=== PATIENT | male | born 1935 | race Hispanic/Latino ===

== ENCOUNTER 2018-02-19 10:33 | Inpatient (IN) | payer MEDICARE ==
[2018-02-19] MEDS ORDERED: NACL 0.9% 1000 ML 1,000 ML IV ONE ×2 (11:09→16:42)
--- NOTE | 2018-02-19 11:24 | Emergency Department Report ---
ED General Adult HPI - General Chief complaint: Altered Mental Status Stated complaint: ALTERED MENTAL STATUS Time Seen by Provider: 02/19/18 11:05 Source: patient, EMS, RN notes reviewed Mode of arrival: Stretcher Limitations: Altered Mental Status - History of Present Illness Initial comments: Patient is unable to give history. I have obtained history from nursing report and half-way records. Mr. Wilkerson is a 82-year-old male with history of degenerative joint disease, acute renal failure, malnutrition, anemia and thrombocytopenia. In December he was admitted at [facility]. He's had physical deterioration with inability to walk over a year's time. He was treated for acute kidney injury, generalized weakness and malnutrition at that time. He was then transferred to [facility] (formerly [facility]) on January 25. Over the last week he has had decreased intake. He is not eating or drinking. + Decreased responsiveness. He also had low blood pressure. Dry mucous membranes. Appears to have abdominal tenderness. Mr. Wilkerson is attempting to speak, but unable to understand with tacky dry oral mucosa. Mr. Wilkerson is full CODE STATUS. I spoke with Dr. Mercado medical receptionist assistant at [facility]. Mr. Wilkerson had multiple falls as a complication of gait instablity prior to admission to facility. Patient did have a fall out of the wheelchair on February 04. Lumbar spine radiographs obtained on February 03 revealed mild compression of 4th lumbar vertabra. - Related Data Home Medications Medication Instructions Recorded Confirmed Last Taken Aspirin [Aspirin BABY CHEW TAB] 81 mg PO QDAY 02/19/18 02/19/18 Unknown Calcium Carbonate/Vitamin D3 1 each PO DAILY 02/19/18 02/19/18 Unknown [Caltrate 600 + D Soft Chew Tab] Ferrous Sulfate [Feosol] 325 mg PO QDAY 02/19/18 02/19/18 Unknown Multivitamin [Multiple Vitamins] 1 each PO DAILY 02/19/18 02/19/18 Unknown [place]-3/Dha/Epa/Fish Oil [Fish Oil 1 each PO DAILY 02/19/18 02/19/18 Unknown 1,000 mg Softgel] Allergies Allergy/AdvReac Type Severity Reaction Status Date / Time meperidine [From Demerol] Allergy Unknown Verified 02/19/18 10:54 pentazocine Allergy Unknown Verified 02/19/18 10:54 promethazine Allergy Unknown Verified 02/19/18 10:54 ED Review of Systems ROS: Stated complaint: ALTERED MENTAL STATUS Other details as noted in HPI Comment: Unobtainable due to pts medical conditions ED Past Medical Hx - Past Medical History Previous Medical History?: Yes Hx Kidney Stones: Yes Additional medical history: anemia, cerebellar ataxia, thrombocytopenia, muscle weakness, protein malnutrition - Social History Smoking Status: Former Smoker Substance Use Type: None - Medications Home Medications: Home Medications Medication Instructions Recorded Confirmed Last Taken Type Aspirin [Aspirin BABY CHEW TAB] 81 mg PO QDAY 02/19/18 02/19/18 Unknown History Calcium Carbonate/Vitamin D3 1 each PO DAILY 02/19/18 02/19/18 Unknown History [Caltrate 600 + D Soft Chew Tab] Ferrous Sulfate [Feosol] 325 mg PO QDAY 02/19/18 02/19/18 Unknown History Multivitamin [Multiple Vitamins] 1 each PO DAILY 02/19/18 02/19/18 Unknown History [place]-3/Dha/Epa/Fish Oil [Fish Oil 1 each PO DAILY 02/19/18 02/19/18 Unknown History 1,000 mg Softgel] ED Physical Exam - General Limitations: Altered Mental Status General appearance: lethargic - Head Head exam: Present: atraumatic, normocephalic - Eye Eye exam: Present: PERRL Pupils: Present: miosis - ENT ENT exam: Present: mucous membranes dry, other (tacky dry mucous membranes with sediment and residue in mouth) - Neck Neck exam: Present: normal inspection, full ROM. Absent: tenderness, meningismus - Respiratory Respiratory exam: Present: rhonchi. Absent: respiratory distress, wheezes, rales, accessory muscle use - Cardiovascular Cardiovascular Exam: Present: regular rate, normal rhythm, normal heart sounds. Absent: systolic murmur, diastolic murmur - GI/Abdominal GI/Abdominal exam: Present: soft, tenderness. Absent: rebound, rigid - Extremities Exam Extremities exam: Absent: pedal edema - Neurological Exam Neurological exam: Present: other (focal deficit,) - Psychiatric Psychiatric exam: Present: flat affect - Skin Skin exam: Present: pallor, ecchymosis (diffuse bruises, large bruise in the left flank), other (cool to touch, redness in the sacral area without skin breakdown) ED Course Vital Signs 02/19/18 02/19/18 02/19/18 10:54 11:11 11:15 Temperature 98.3 F Pulse Rate 80 77 Respiratory 16 19 Rate Blood Pressure 85/56 Blood Pressure 92/54 [Left] O2 Sat by Pulse 100 100 Oximetry ED Medical Decision Making - Lab Data Result diagrams: 02/19/18 11:31 02/19/18 11:31 - EKG Data EKG shows normal: sinus rhythm, intervals Rate: normal - EKG Data 02/19/18 14:12 anterior Q waves no ST elevation - Radiology Data Radiology results: report reviewed multiple pelvic fx, ascites small effusion - Medical Decision Making Mr. Wilkerson presents with altered mental status, hypotension. DIANE noted with volume contraction (hypernatremia, hyperchloremia). Incidental multiple pelvic fractures noted. Due to severe decline, patient does not appear to be a surgical candidate due to poor nutritional status and low expected cognitive/ motor function. He will need hypdration and comfort care. No obvious source of infection. No tachycardia to indication active hemorrhage. Suspect severe dehydration as cause of hypotension. Acceptable hemoglobin/hematocrit level. Critical Care Time: Yes Critical care time in (mins) excluding proc time.: 65 Critical care attestation.: If time is entered above; I have spent that time in minutes in the direct care of this critically ill patient, excluding procedure time. ED Disposition Clinical Impression: DIANE (acute kidney injury), Acute encephalopathy, Pelvic fracture, Femur fracture, left Disposition: -09 OP ADMIT IP TO THIS HOSP Is pt being admited?: Yes Does the pt Need Aspirin: No Condition: Stable Time of Disposition: 14:16
--- NOTE | 2018-02-19 11:43 | XRay Report ---
AP CHEST: HISTORY: Altered mental status AP view of the chest demonstrates a normal mediastinal and cardiac contour with clear lungs and normal bony and soft tissue structures. IMPRESSION: Unremarkable AP chest.
[2018-02-19 12:13] LABS: Basophils % (Auto) 0.2 % (0.0-1.8); Eosinophils # (Auto) 0.1 K/mm3 (0.0-0.4); Eosinophils % (Auto) 0.7 % (0.0-4.3); Hematocrit 33.7 % (35.5-45.6); Hemoglobin 10.7 gm/dl (11.8-15.2); Mean Corpuscular HGB Conc 32 % (32-34); Mean Corpuscular Hemoglobin 32 pg (28-32); Mean Corpuscular Volume 99 fl (84-94); Monocytes # (Auto) 0.8 K/mm3 (0.0-0.8); Monocytes % (Auto) 8.5 % (0.0-7.3); Platelet Count 126 K/mm3 (140-440); Red Cell Distribution Width 19.6 % (13.2-15.2)
[2018-02-19 12:19] LABS: Albumin 1.8 g/dL (3.9-5); Calcium 7.7 mg/dL (8.4-10.2)
[2018-02-19 12:21] LABS: INR 1.22 (0.87-1.13)
[2018-02-19 12:23] LABS: Bacteria,Urine 1+ /HPF (Negative); Bilirubin,Urine NEG (Negative); Blood,Urine NEG (Negative); Color,Urine Amber (Yellow); Mucus,Urine FEW /HPF; Protein,Urine <15 mg/dL mg/dL (Negative)
--- NOTE | 2018-02-19 12:58 | Cat Scan Report ---
CT HEAD WITHOUT CONTRAST: HISTORY: Altered mental status. TECHNIQUE: Sequential CT images without contrast. FINDINGS: Non-contrast CT of the head is submitted demonstrating central and cortical atrophy. There are low density changes in the periventricular white matter. There is no intracranial hemorrhage or mass effect. There is no shift of the midline. Basilar cisterns are patent. The included portions of the paranasal sinuses and mastoid air cells are clear. IMPRESSION: Senescent changes as noted. No acute intracranial process.
--- NOTE | 2018-02-19 13:04 | Cat Scan Report ---
CT ABDOMEN PELVIS WITHOUT CONTRAST: HISTORY: abdominal pain. COMPARISON: none. TECHNIQUE: Helical CT in 1.25mm intervals without IV contrast. Sagittal and coronal reconstructions. FINDINGS: Lung bases: Heart size is normal. A small layering left pleural effusion is identified. Liver: Normal. Biliary system: There appears to be layering sludge or tiny non-calcified stones in the gallbladder. No biliary dilatation or inflammation is identified. Pancreas: Normal. Spleen: Normal. Kidneys/ureters/bladder: Bilateral renal cysts are identified. The largest cyst measures 7.9 cm in the mid right kidney. There are 2 nonobstructing calyceal stones in the inferior left kidney measuring up to 3 mm. The ureters are normal course and caliber. The bladder is empty and contains a Ring catheter. Adrenal glands: Normal. Aorta: Normal. Intestines: Unremarkable given no oral contrast was administered. Appendix: Not confidently identified, correlate with surgical history. Pelvic viscera: Hysterectomy changes. Ascites: Small perihepatic and pelvic ascites is identified. Adenopathy: None. Musculoskeletal: The bony structures are mildly demineralized. A severely comminuted left acetabular fracture is identified. Fracture lines extend to the left superior pubic ramus. A comminuted fracture of the left inferior pubic ramus is also identified. There is also suggestion of a nondisplaced left femoral neck fracture. Advanced degenerative disc disease at L4-5. IMPRESSION: Multiple left pelvic fractures as described. Questionable nondisplaced left femoral neck fracture. Cholelithiasis. Bilateral renal cysts. Left renal stones. Small ascites. Small left pleural effusion.
[2018-02-19] MEDS ORDERED: NACL 0.9% 1000 ML 1,000 ML ONE (16:29)
[2018-02-19] MEDS ORDERED: NACL 0.9% 1000 ML 1,000 ML IV SCH (17:00)
[2018-02-19] MEDS ORDERED: ZOFRAN IV PRN (22:07)
[2018-02-19] MEDS ORDERED: PERCOCET 5/325 PO PRN (22:07)
[2018-02-19] MEDS ORDERED: SODIUM CHLORIDE FLUSH SYRINGE 10 ML IV PRN (22:07)
[2018-02-19] MEDS ORDERED: TYLENOL PO PRN (22:07)
--- NOTE | 2018-02-19 22:07 | History and Physical Report ---
History of Present Illness Date of examination: 02/19/18 Date of admission: 02/19/18 15:11 Chief complaint: CC AMS and Decreased PO intake History of present illness: History of Present Illness Patient is unable to give history. Obtained history from nursing report and long-term records. Mr. Wilkerson is a 82-year-old male with history of degenerative joint disease, acute renal failure, malnutrition, anemia and thrombocytopenia. In December he was admitted at [facility]. He's had physical deterioration with inability to walk over a year's time. He was treated for acute kidney injury, generalized weakness and malnutrition at that time. He was then transferred to [facility] on January 25. Over the last week he has had decreased intake. He is not eating or drinking. + Decreased responsiveness. He also had low blood pressure. Dry mucous membranes. Appears to have abdominal tenderness. Mr. Wilkerson is attempting to speak, but unable to understand with tacky dry oral mucosa. Mr. Wilkerson is full CODE STATUS. Past Medical History Previous Medical History?: Yes Hx Kidney Stones: Yes Additional medical history: anemia, cerebellar ataxia, thrombocytopenia, muscle weakness, protein malnutrition Social History Smoking Status: Former Smoker Substance Use Type: None IN resident Surg Hx Unavailable Fam HX Unavailable - Medications Home Medications: Home Medications Medication Instructions Recorded Confirmed Last Taken Type Aspirin [Aspirin BABY CHEW TAB] 81 mg PO QDAY 02/19/18 02/19/18 Unknown History Calcium Carbonate/Vitamin D3 1 each PO DAILY 02/19/18 02/19/18 Unknown History [Caltrate 600 + D Soft Chew Tab] Ferrous Sulfate [Feosol] 325 mg PO QDAY 02/19/18 02/19/18 Unknown History Multivitamin [Multiple Vitamins] 1 each PO DAILY 02/19/18 02/19/18 Unknown History [place]-3/Dha/Epa/Fish Oil [Fish Oil 1 each PO DAILY 02/19/18 02/19/18 Unknown History 1,000 mg Softgel] Review of Systems ROS: Stated complaint: ALTERED MENTAL STATUS Other details as noted in HPI Comment: Unobtainable due to pts medical conditions Medications and Allergies Allergies Allergy/AdvReac Type Severity Reaction Status Date / Time meperidine [From Demerol] Allergy Unknown Verified 02/19/18 10:54 pentazocine Allergy Unknown Verified 02/19/18 10:54 promethazine Allergy Unknown Verified 02/19/18 10:54 Home Medications Medication Instructions Recorded Confirmed Last Taken Type Aspirin [Aspirin BABY CHEW TAB] 81 mg PO QDAY 02/19/18 02/19/18 Unknown History Calcium Carbonate/Vitamin D3 1 each PO DAILY 02/19/18 02/19/18 Unknown History [Caltrate 600 + D Soft Chew Tab] Ferrous Sulfate [Feosol] 325 mg PO QDAY 02/19/18 02/19/18 Unknown History Multivitamin [Multiple Vitamins] 1 each PO DAILY 02/19/18 02/19/18 Unknown History [place]-3/Dha/Epa/Fish Oil [Fish Oil 1 each PO DAILY 02/19/18 02/19/18 Unknown History 1,000 mg Softgel] Active Meds: Active Medications Sodium Chloride (Nacl 0.9% 1000 Ml) 1,000 mls @ 125 mls/hr IV ONCE ONE Stop: 02/20/18 00:41 Last Admin: 02/19/18 16:44 Dose: 125 mls/hr Sodium Chloride (Nacl 0.9% 1000 Ml) 1,000 mls @ 125 mls/hr IV DIRECT RIZWANA Exam - Constitutional Vitals: Temp Pulse Resp BP Pulse Ox 97.3 F L 70 19 109/44 100 02/19/18 17:00 02/19/18 20:34 02/19/18 19:36 02/19/18 19:36 02/19/18 19:36 General appearance: Present: no acute distress, cachectic, disheveled - EENT Eyes: Present: PERRL ENT: hearing intact, clear oral mucosa, edentulous, other (Dry mucous membranes) - Neck Neck: Present: supple, normal ROM - Respiratory Respiratory effort: normal Respiratory: bilateral: CTA - Cardiovascular Heart rate: 80 Rhythm: regular Heart Sounds: Present: S1 & S2. Absent: rub, click - Extremities Extremities: no ischemia, pulses intact, pulses symmetrical, No edema Peripheral Pulses: within normal limits - Abdominal General gastrointestinal: Present: soft, non-tender, non-distended, normal bowel sounds Male genitourinary: Present: normal - Rectal Rectal Exam: deferred - Integumentary Integumentary: Present: clear, warm, dry - Musculoskeletal Musculoskeletal: generalized weakness - Psychiatric Psychiatric: depressed - Neurologic Neurologic: CNII-XII intact, moves all extremities, other (Severe Debility unable to walk) - Allied Health Allied health notes reviewed: nursing, case management Results - Labs CBC & Chem 7: 02/19/18 11:31 02/19/18 11:31 Labs: Laboratory Last Values WBC 9.3 K/mm3 (4.5-11.0) 02/19/18 11:31 RBC 3.40 M/mm3 (3.65-5.03) L 02/19/18 11:31 Hgb 10.7 gm/dl (11.8-15.2) L 02/19/18 11:31 Hct 33.7 % (35.5-45.6) L 02/19/18 11:31 MCV 99 fl (84-94) H 02/19/18 11:31 MCH 32 pg (28-32) 02/19/18 11:31 MCHC 32 % (32-34) 02/19/18 11:31 RDW 19.6 % (13.2-15.2) H 02/19/18 11:31 Plt Count 126 K/mm3 (140-440) L 02/19/18 11:31 Lymph % (Auto) 11.0 % (13.4-35.0) L 02/19/18 11:31 [place] % (Auto) 8.5 % (0.0-7.3) H 02/19/18 11:31 Eos % (Auto) 0.7 % (0.0-4.3) 02/19/18 11:31 Baso % (Auto) 0.2 % (0.0-1.8) 02/19/18 11:31 Lymph # 1.0 K/mm3 (1.2-5.4) L 02/19/18 11:31 [place] # 0.8 K/mm3 (0.0-0.8) 02/19/18 11:31 Eos # 0.1 K/mm3 (0.0-0.4) 02/19/18 11:31 Baso # 0.0 K/mm3 (0.0-0.1) 02/19/18 11:31 Seg Neutrophils % 79.6 % (40.0-70.0) H 02/19/18 11:31 Seg Neutrophils # 7.4 K/mm3 (1.8-7.7) 02/19/18 11:31 PT 16.1 Sec. (12.2-14.9) H 02/19/18 11:31 INR 1.22 (0.87-1.13) H 02/19/18 11:31 POC ABG pH 7.415 (7.35-7.45) 02/19/18 16:16 POC ABG pCO2 38.7 (35-45) 02/19/18 16:16 POC ABG pO2 108 (80-105) H 02/19/18 16:16 POC ABG HCO3 24.9 02/19/18 16:16 POC ABG Total CO2 26 02/19/18 16:16 POC ABG O2 Sat 98 02/19/18 16:16 POC ABG Base Excess 0 02/19/18 16:16 FiO2 28 % 02/19/18 16:16 Sodium 149 mmol/L (137-145) H 02/19/18 11:31 Potassium 4.1 mmol/L (3.6-5.0) 02/19/18 11:31 Chloride 116.6 mmol/L (98-107) H 02/19/18 11:31 Carbon Dioxide 25 mmol/L (22-30) 02/19/18 11:31 Anion Gap 12 mmol/L 02/19/18 11:31 BUN 52 mg/dL (9-20) H 02/19/18 11:31 Creatinine 1.4 mg/dL (0.8-1.5) 02/19/18 11:31 Estimated GFR 48 ml/min 02/19/18 11:31 BUN/Creatinine Ratio 37 % 02/19/18 11:31 Glucose 101 mg/dL (75-100) H 02/19/18 11:31 Lactic Acid 2.30 mmol/L (0.7-2.0) H* 02/19/18 11:31 Calcium 7.7 mg/dL (8.4-10.2) L 02/19/18 11:31 Total Bilirubin 1.30 mg/dL (0.1-1.2) H 02/19/18 11:31 AST 38 units/L (5-40) 02/19/18 11:31 ALT 13 units/L (7-56) 02/19/18 11:31 Alkaline Phosphatase 220 units/L (35-129) H 02/19/18 11:31 Total Creatine Kinase 39 units/L (55-170) L 02/19/18 11:31 Troponin T 0.018 ng/mL (0.00-0.029) 02/19/18 11:31 Total Protein 6.1 g/dL (6.3-8.2) L 02/19/18 11:31 Albumin 1.8 g/dL (3.9-5) L 02/19/18 11:31 Albumin/Globulin Ratio 0.4 % 02/19/18 11:31 TSH 1.050 mlU/mL (0.270-4.200) 02/19/18 11:31 Urine Color Edith (Yellow) 02/19/18 12:08 Urine Turbidity Clear (Clear) 02/19/18 12:08 Urine pH 5.0 (5.0-7.0) 02/19/18 12:08 Ur Specific [place] 1.021 (1.003-1.030) 02/19/18 12:08 Urine Protein <15 mg/dl mg/dL (Negative) 02/19/18 12:08 Urine Glucose (UA) Neg mg/dL (Negative) 02/19/18 12:08 Urine Ketones Neg mg/dL (Negative) 02/19/18 12:08 Urine Blood Neg (Negative) 02/19/18 12:08 Urine Nitrite Neg (Negative) 02/19/18 12:08 Urine Bilirubin Neg (Negative) 02/19/18 12:08 Urine Urobilinogen 4.0 mg/dL (<2.0) 02/19/18 12:08 Ur Leukocyte Esterase Neg (Negative) 02/19/18 12:08 Urine WBC (Auto) 3.0 /HPF (0.0-6.0) 02/19/18 12:08 Urine RBC (Auto) 1.0 /HPF (0.0-6.0) 02/19/18 12:08 Urine Bacteria (Auto) 1+ /HPF (Negative) 02/19/18 12:08 Urine Mucus Few /HPF 02/19/18 12:08 - Imaging and Cardiology EKG: report reviewed Imaging and Cardiology: CT ABDOMEN PELVIS WITHOUT CONTRAST: HISTORY: abdominal pain. COMPARISON: none. TECHNIQUE: Helical CT in 1.25mm intervals without IV contrast. Sagittal and coronal reconstructions. FINDINGS: Lung bases: Heart size is normal. A small layering left pleural effusion is identified. Liver: Normal. Biliary system: There appears to be layering sludge or tiny non-calcified stones in the gallbladder. No biliary dilatation or inflammation is identified. Pancreas: Normal. Spleen: Normal. Kidneys/ureters/bladder: Bilateral renal cysts are identified. The largest cyst measures 7.9 cm in the mid right kidney. There are 2 nonobstructing calyceal stones in the inferior left kidney measuring up to 3 mm. The ureters are normal course and caliber. The bladder is empty and contains a Ring catheter. Adrenal glands: Normal. Aorta: Normal. Intestines: Unremarkable given no oral contrast was administered. Appendix: Not confidently identified, correlate with surgical history. Pelvic viscera: Hysterectomy changes. Ascites: Small perihepatic and pelvic ascites is identified. Adenopathy : None. Musculoskeletal: The bony structures are mildly demineralized. A severely comminuted left acetabular fracture is identified. Fracture lines extend to the left superior pubic ramus. A comminuted fracture of the left inferior pubic ramus is also identified. There is also suggestion of a nondisplaced left femoral neck fracture. Advanced degenerative disc disease at L4-5. IMPRESSION: Multiple left pelvic fractures as described. Questionable nondisplaced left femoral neck fracture. Cholelithiasis. Bilateral renal cysts. Left renal stones. Small ascites. Small left pleural effusion. Transcribed By: TTR Dictated By: NAVYA CABALLERO JR, MD Electronically Authenticated By: NAVYA CABALLERO JR, MD Signed Date/Time: 02/19/18 1240 Assessment and Plan Advance Directives: Yes (Full code) VTE prophylaxis?: Chemical Plan of care discussed with patient/family: No - Patient Problems (1) Acute encephalopathy Current Visit: Yes Status: Acute Plan to address problem: Sec to Dehydration and severe malnutrition (2) DIANE (acute kidney injury) Current Visit: Yes Status: Acute Plan to address problem: IV Fluids for now (3) Femur fracture, left Current Visit: Yes Status: Chronic Qualifiers: Encounter type: initial encounter Plan to address problem: Dr Chavez Consulted Probably conservative To Discuss DNR Family not available (4) Pelvic fracture Current Visit: Yes Status: Acute Qualifiers: Encounter type: initial encounter Fracture alignment: nondisplaced Plan to address problem: Ortho Consulted Conservative treatment (5) Malnutrition Current Visit: Yes Status: Chronic Qualifiers: Malnutrition type: protein-calorie malnutrition Protein-calorie malnutrition severity: severe Qualified Code(s): E43 - Unspecified severe protein-calorie malnutrition Plan to address problem: Alb 1.8 Dietitian consult and calorie count May need peg (6) DVT prophylaxis Current Visit: Yes Status: Acute Plan to address problem: On Heparin
[2018-02-19] MEDS: D5NS 1,000 ML IV SCH (22:56)
[2018-02-20] MEDS: D5NS 1,000 ML IV SCH (06:19)
[2018-02-20] MEDS ORDERED: TYLENOL PO PRN ×2 (07:42→10:05)
[2018-02-20] MEDS ORDERED: ZOFRAN IV PRN ×2 (07:42→10:05)
[2018-02-20] MEDS ORDERED: SODIUM CHLORIDE FLUSH SYRINGE 10 ML IV PRN ×2 (07:42→10:05)
[2018-02-20 08:26] LABS: Alanine Aminotransferase 13 units/L (7-56); Albumin 1.5 g/dL (3.9-5); BUN/Creatinine Ratio 40; Blood Urea Nitrogen 44 mg/dL (9-20); Calcium 7.3 mg/dL (8.4-10.2); Hemolysis Index 57
[2018-02-20 08:33] LABS: Basophils % (Auto) 0.2 % (0.0-1.8); Eosinophils # (Auto) 0.1 K/mm3 (0.0-0.4); Eosinophils % (Auto) 1.2 % (0.0-4.3); Hematocrit 28.2 % (35.5-45.6); Lymphocytes # (Auto) 0.6 K/mm3 (1.2-5.4); Lymphocytes % (Auto) 9.8 % (13.4-35.0); Mean Corpuscular HGB Conc 32 % (32-34); Mean Corpuscular Hemoglobin 31 pg (28-32); Mean Corpuscular Volume 98 fl (84-94); Monocytes # (Auto) 0.5 K/mm3 (0.0-0.8); Monocytes % (Auto) 8.7 % (0.0-7.3); Platelet Count 100 K/mm3 (140-440); Red Blood Count 2.87 M/mm3 (3.65-5.03); Red Cell Distribution Width 19.7 % (13.2-15.2)
[2018-02-20] MEDS: PEPCID PO SCH ×2 (10:00→23:55)
[2018-02-20] MEDS ORDERED: HEPARIN SUB-Q SCH (10:00)
[2018-02-20] MEDS ORDERED: SODIUM CHLORIDE FLUSH SYRINGE 10 ML IV SCH (10:00)
[2018-02-20] MEDS: SODIUM CHLORIDE FLUSH SYRINGE 10 ML IV SCH ×3 (10:17→23:56)
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
[2018-02-20] MEDS: D5/0.45NS 1,000 ML IV SCH (16:14)
[2018-02-20] MEDS: PEPCID IV SCH (22:44)
[2018-02-20] MEDS: MORPHINE IV PRN (22:51)
[2018-02-21] MEDS: D5/0.45NS 1,000 ML IV SCH (06:06)
[2018-02-21 07:24] LABS: Hematocrit 26.5 % (35.5-45.6); Hemoglobin 8.5 gm/dl (11.8-15.2); Mean Corpuscular HGB Conc 32 % (32-34); Mean Corpuscular Hemoglobin 32 pg (28-32); Mean Corpuscular Volume 99 fl (84-94); Red Blood Count 2.68 M/mm3 (3.65-5.03); Red Cell Distribution Width 19.4 % (13.2-15.2)
[2018-02-21 07:26] LABS: Platelet Count 89 K/mm3 (140-440)
[2018-02-21 07:46] LABS: BUN/Creatinine Ratio 38; Blood Urea Nitrogen 34 mg/dL (9-20); Calcium 7.5 mg/dL (8.4-10.2); Hemolysis Index 8
[2018-02-21] MEDS ORDERED: PEPCID IV SCH (10:00)
[2018-02-21] MEDS: PEPCID IV SCH ×2 (11:40→22:03)
[2018-02-21] MEDS: SODIUM CHLORIDE FLUSH SYRINGE 10 ML IV SCH ×2 (11:41→22:17)
[2018-02-21] MEDS: D5W 1,000 ML IV SCH ×2 (11:41→22:05)
--- NOTE | 2018-02-21 12:48 | Consultation ---
History of Present Illness - HPI Consult date: 02/21/18 Consult reason: fracture History of present illness: 82 y/o male with metabolic encephalopathy who spent time at [facility] in [place] and transferred to [facility]...asked to evaluate pelvic fractures discovered on CT scan...No family members present during exam and patient appears to have elements of dementia present...CT scan of pelvis reviewed by me and appears to show left displaced acetabular fracture " old " but no plain film available for review...Not sure if patient ambulatory prior to falls... Medications and Allergies Allergies Allergy/AdvReac Type Severity Reaction Status Date / Time meperidine [From Demerol] Allergy Unknown Verified 02/19/18 10:54 pentazocine Allergy Unknown Verified 02/19/18 10:54 promethazine Allergy Unknown Verified 02/19/18 10:54 Home Medications Medication Instructions Recorded Confirmed Last Taken Type Aspirin [Aspirin BABY CHEW TAB] 81 mg PO QDAY 02/19/18 02/19/18 Unknown History Calcium Carbonate/Vitamin D3 1 each PO DAILY 02/19/18 02/19/18 Unknown History [Caltrate 600 + D Soft Chew Tab] Ferrous Sulfate [Feosol] 325 mg PO QDAY 02/19/18 02/19/18 Unknown History Multivitamin [Multiple Vitamins] 1 each PO DAILY 02/19/18 02/19/18 Unknown History [place]-3/Dha/Epa/Fish Oil [Fish Oil 1 each PO DAILY 02/19/18 02/19/18 Unknown History 1,000 mg Softgel] Active Meds: Active Medications Acetaminophen (Tylenol) 650 mg PO Q4H PRN PRN Reason: Pain MILD(1-3)/Fever >100.5/KRUSE Famotidine (Pepcid) 20 mg IV BID [facility] Last Admin: 02/21/18 11:40 Dose: 20 mg Dextrose (D5w) 1,000 mls @ 75 mls/hr IV DIRECT [facility] Last Admin: 02/21/18 11:41 Dose: 75 mls/hr Morphine Sulfate (Morphine) 2 mg IV Q4H PRN PRN Reason: Pain, Moderate (4-6) Last Admin: 02/20/18 22:51 Dose: 2 mg Ondansetron HCl (Zofran) 4 mg IV Q8H PRN PRN Reason: Nausea And Vomiting Oxycodone/Acetaminophen (Percocet 5/325) 1 tab PO Q6H PRN PRN Reason: Pain, Moderate (4-6) Sodium Chloride (Sodium Chloride Flush Syringe 10 Ml) 10 ml IV PRN PRN PRN Reason: LINE FLUSH Sodium Chloride (Sodium Chloride Flush Syringe 10 Ml) 10 ml IV BID [facility] Last Admin: 02/21/18 11:41 Dose: 10 ml Assessment and Plan Displaced left acetabular fracture age undetermined but appears to be chronic will order plain films of the pelvis depending on whether patient ambulating recently will determine if surgery necessary, i.e. hip replacement or continue conservative regime
--- NOTE | 2018-02-21 14:06 | XRay Report ---
AP PELVIS: HISTORY: pain. Compared to the CT abdomen pelvis performed 02/19/18. The comminuted left acetabular fracture appears unchanged in position and alignment. No obvious proximal left femur fracture on x-ray. The right hip is unremarkable. IMPRESSION: Comminuted left acetabular fracture.
--- NOTE | 2018-02-21 15:08 | Consultation ---
REFERRING PHYSICIAN: Dr. Fitch. REASON FOR CONSULTATION: Thrombocytopenia. HISTORY OF PRESENT ILLNESS: The patient is an 82-year-old male who was admitted here from [facility]. The patient has history of degenerative joint disease, renal failure, malnutrition, anemia, thrombocytopenia, who in December was admitted to [facility]. He had had physical deterioration and inability to walk for over a year's time. In the [facility], he was treated for acute renal failure, generalized weakness, and malnutrition was transferred to [facility] on 01/25/2018. Over the last week, he had had decreased intake, decreased responsiveness, and low blood pressure along with abdominal tenderness. He was admitted to the hospital for workup and treatment. His admission lab work on 02/19/2018 showed hemoglobin of 10.7, white count 9.3, platelets 126,000. INR was 1.22. His sodium was 149, chloride 116, BUN 52, creatinine of 1.4, lactic acid of 2.3. Urine was negative. Alkaline phosphatase 220, AST 38, ALT 13. Blood cultures have also been drawn. No growth after 48 hours. The patient has had decrease in his platelet count, which went down from 126 on admission to 89 today and Hematology consult was called. The patient also on his admission underwent CT of the abdomen and head CT. Head CT was unremarkable except for age-related changes. CT abdomen did show multiple left pelvic fractures, a questionable nondisplaced left femoral neck fracture, cholelithiasis, bilateral renal cysts, left renal stone, a small amount of ascites, and small left pleural effusion. Because of thrombocytopenia, Hematology consult was called. The patient had also been on heparin for a couple of days, which was stopped. There is no obvious bleeding. PAST MEDICAL HISTORY: Positive for anemia, cerebellar ataxia, thrombocytopenia, muscle weakness, protein malnutrition. SOCIAL HISTORY: He used to be a smoker. PHYSICAL EXAMINATION: GENERAL: The patient is awake and confused, cannot give any details. HEENT: Remarkable for pallor in the conjunctivae. CHEST: Decreased breath sounds. ABDOMEN: Soft. No obvious tenderness. EXTREMITIES: Have SCDs. LABORATORY DATA: As mentioned in history of present illness. ASSESSMENT: 1. Pancytopenia with normochromic anemia. 2. Elevated INR, ruled out liver disease. 3. Altered mental status. ? Infection. 4. Pelvic fractures. PLAN: At this time, we will go ahead and do anemia workup, also check heparin-induced thrombocytopenia assay. Heparin has been put on hold. Blood cultures have been done. We will follow up on the results of that. We will also check hepatitis profile. We will follow his counts carefully. Watch for bleeding. JOB# [id number] GKS/NTS
[2018-02-21 15:58] LABS: % Iron Saturation 24.49 %
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
[2018-02-22 07:05] LABS: Basophils % (Auto) 0.4 % (0.0-1.8); Eosinophils # (Auto) 0.1 K/mm3 (0.0-0.4); Eosinophils % (Auto) 0.7 % (0.0-4.3); Hematocrit 29.7 % (35.5-45.6); Hemoglobin 9.8 gm/dl (11.8-15.2); Lymphocytes # (Auto) 0.9 K/mm3 (1.2-5.4); Lymphocytes % (Auto) 11.6 % (13.4-35.0); Mean Corpuscular HGB Conc 33 % (32-34); Mean Corpuscular Hemoglobin 32 pg (28-32); Mean Corpuscular Volume 97 fl (84-94); Monocytes # (Auto) 0.7 K/mm3 (0.0-0.8); Monocytes % (Auto) 9.4 % (0.0-7.3); Platelet Count 105 K/mm3 (140-440); Red Blood Count 3.08 M/mm3 (3.65-5.03); Red Cell Distribution Width 19.5 % (13.2-15.2)
[2018-02-22 07:30] LABS: BUN/Creatinine Ratio 31; Blood Urea Nitrogen 31 mg/dL (9-20); Calcium 7.5 mg/dL (8.4-10.2); Hemolysis Index 7
--- NOTE | 2018-02-22 09:12 | Hem/Onc Progress Note ---
Assessment and Plan Workup for anemia and thrombocytopenia showing no obvious cause. Platelets have improved. Continue to monitor. 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 If he has to have surgery, will be okay with the current latest white count but will be monitoring for bleeding. Subjective Date of service: 02/22/18 Interval history: No change. No active bleeding. Appreciate orthopedic note Objective - Exam Narrative Exam: Not verbal. No active bleeding - Constitutional Vitals: Last Vital Signs Temp 97.7 F 02/22/18 08:09 Pulse 79 02/22/18 06:26 Resp 16 02/22/18 08:09 BP 98/55 02/22/18 08:09 Pulse Ox 100 02/22/18 07:39 - Labs Lab Results: Laboratory Results - last 24 hr 02/21/18 02/21/18 02/21/18 15:04 15:04 15:04 WBC RBC Hgb Hct MCV MCH MCHC RDW Plt Count Lymph % (Auto) [place] % (Auto) Eos % (Auto) Baso % (Auto) Lymph # [place] # Eos # Baso # Seg Neutrophils % Seg Neutrophils # Percent Retic 2.37 Sodium Potassium Chloride Carbon Dioxide Anion Gap BUN Creatinine Estimated GFR BUN/Creatinine Ratio Glucose Calcium Iron 24 L TIBC 98 L % Saturation 24.49 Transferrin 94 L Ferritin 770.3 H Vitamin B12 Folate Hep Bs Antigen Hepatitis C Antibody 02/21/18 02/21/18 02/21/18 15:04 15:04 15:18 WBC RBC Hgb Hct MCV MCH MCHC RDW Plt Count Lymph % (Auto) [place] % (Auto) Eos % (Auto) Baso % (Auto) Lymph # [place] # Eos # Baso # Seg Neutrophils % Seg Neutrophils # Percent Retic Sodium Potassium Chloride Carbon Dioxide Anion Gap BUN Creatinine Estimated GFR BUN/Creatinine Ratio Glucose Calcium Iron TIBC % Saturation Transferrin Ferritin Vitamin B12 > 2000 H Folate 9.28 Hep Bs Antigen Hepatitis C Antibody Non-reactive 02/21/18 02/22/18 02/22/18 15:18 06:47 06:47 WBC 7.4 RBC 3.08 L Hgb 9.8 L Hct 29.7 L MCV 97 H MCH 32 MCHC 33 RDW 19.5 H Plt Count 105 L Lymph % (Auto) 11.6 L [place] % (Auto) 9.4 H Eos % (Auto) 0.7 Baso % (Auto) 0.4 Lymph # 0.9 L [place] # 0.7 Eos # 0.1 Baso # 0.0 Seg Neutrophils % 77.9 H Seg Neutrophils # 5.8 Percent Retic Sodium 152 H Potassium 3.7 Chloride 121.3 H Carbon Dioxide 20 L Anion Gap 14 BUN 31 H Creatinine 1.0 Estimated GFR > 60 BUN/Creatinine Ratio 31 Glucose 88 Calcium 7.5 L Iron TIBC % Saturation Transferrin Ferritin Vitamin B12 Folate Hep Bs Antigen Non-reactive Hepatitis C Antibody
[2018-02-22] MEDS: PEPCID IV SCH (09:32)
[2018-02-22] MEDS: D5W 1,000 ML IV SCH ×2 (11:01→19:53)
[2018-02-22] MEDS: SODIUM CHLORIDE FLUSH SYRINGE 10 ML IV SCH ×2 (11:04→21:39)
--- NOTE | 2018-02-22 15:03 | Progress Note ---
Assessment and Plan left acetabular fx " old " at least 6 wks... due to debilitated status will try PT for evaluation and recommendations.... Subjective Date of service: 02/22/18 Interval history: spoke to one of his manager of care today, states that patient ambulatory prior to recent falls unaware of previous hx of acetabular fx while in [place]...discussed possibility of having PT evaluate patient for gait training...xrays pelvis show evidence of old fx left acetabulum.... Objective Vital signs: Vital Signs - 12hr 02/22/18 02/22/18 02/22/18 04:18 06:00 06:26 Temperature 98.5 F Pulse Rate 74 68 79 Respiratory 20 16 Rate Blood Pressure 88/44 Blood Pressure [Left] O2 Sat by Pulse 99 100 Oximetry 02/22/18 02/22/18 02/22/18 07:39 08:09 11:40 Temperature 97.7 F 97.4 F L Pulse Rate 93 H Respiratory 16 16 Rate Blood Pressure 98/55 Blood Pressure 103/66 [Left] O2 Sat by Pulse 100 99 Oximetry - Labs CBC & BMP: 02/22/18 06:47 02/22/18 06:47 Labs: Abnormal lab results 02/21/18 02/21/18 02/21/18 Range/Units 15:04 15:04 15:04 RBC (3.65-5.03) M/mm3 Hgb (11.8-15.2) gm/dl Hct (35.5-45.6) % MCV (84-94) fl RDW (13.2-15.2) % Plt Count (140-440) K/mm3 Lymph % (Auto) (13.4-35.0) % [place] % (Auto) (0.0-7.3) % Lymph # (1.2-5.4) K/mm3 Seg Neutrophils % (40.0-70.0) % Sodium (137-145) mmol/L Chloride (98-107) mmol/L Carbon Dioxide (22-30) mmol/L BUN (9-20) mg/dL Calcium (8.4-10.2) mg/dL Iron 24 L (49-181) ug/dL TIBC 98 L (250-450) mcg/dL Transferrin 94 L (180-329) mg/dl Ferritin 770.3 H (13.0-400.0) ng/mL Vitamin B12 > 2000 H (211-911) pg/mL 02/22/18 02/22/18 Range/Units 06:47 06:47 RBC 3.08 L (3.65-5.03) M/mm3 Hgb 9.8 L (11.8-15.2) gm/dl Hct 29.7 L (35.5-45.6) % MCV 97 H (84-94) fl RDW 19.5 H (13.2-15.2) % Plt Count 105 L (140-440) K/mm3 Lymph % (Auto) 11.6 L (13.4-35.0) % [place] % (Auto) 9.4 H (0.0-7.3) % Lymph # 0.9 L (1.2-5.4) K/mm3 Seg Neutrophils % 77.9 H (40.0-70.0) % Sodium 152 H (137-145) mmol/L Chloride 121.3 H (98-107) mmol/L Carbon Dioxide 20 L (22-30) mmol/L BUN 31 H (9-20) mg/dL Calcium 7.5 L (8.4-10.2) mg/dL Iron (49-181) ug/dL TIBC (250-450) mcg/dL Transferrin (180-329) mg/dl Ferritin (13.0-400.0) ng/mL Vitamin B12 (211-911) pg/mL
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
[2018-02-22] MEDS: PEPCID PO SCH (21:38)
[2018-02-23] MEDS: MORPHINE IV PRN ×2 (01:42→23:31)
[2018-02-23] MEDS: D5W 1,000 ML IV SCH (06:07)
[2018-02-23 09:43] LABS: Hematocrit 27.6 % (35.5-45.6); Hemoglobin 9.1 gm/dl (11.8-15.2); Mean Corpuscular HGB Conc 33 % (32-34); Mean Corpuscular Hemoglobin 32 pg (28-32); Mean Corpuscular Volume 96 fl (84-94); Red Blood Count 2.88 M/mm3 (3.65-5.03); Red Cell Distribution Width 19.1 % (13.2-15.2)
[2018-02-23 09:45] LABS: Platelet Count 92 K/mm3 (140-440)
[2018-02-23 09:50] LABS: BUN/Creatinine Ratio 30; Blood Urea Nitrogen 30 mg/dL (9-20); Calcium 7.5 mg/dL (8.4-10.2); Hemolysis Index 34
[2018-02-23] MEDS: SODIUM CHLORIDE FLUSH SYRINGE 10 ML IV SCH ×2 (10:00→21:56)
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
[2018-02-23 11:49] LABS: Anisocytosis 1+; Band Neutrophils # (Manual) 0.1 K/mm3; Basophils % (Manual) 0 % (0.0-1.8); Total Cells Counted 100
[2018-02-23 11:50] LABS: Platelet Estimate Consistent w Auto
[2018-02-23] MEDS ORDERED: NACL 0.9% 500 ML 500 ML IV ONE (11:57)
--- NOTE | 2018-02-23 12:04 | Hem/Onc Progress Note ---
Assessment and Plan - Patient Problems (1) Pelvic fracture Current Visit: Yes Status: Acute Qualifiers: Encounter type: initial encounter Fracture alignment: nondisplaced Plan to address problem: Counts are stable. Continue to monitor. Subjective Date of service: 02/23/18 Interval history: No new complains. No bleeding Objective - Constitutional Vitals: Last Vital Signs Temp 97.5 F L 02/23/18 11:17 Pulse 90 02/23/18 11:17 Resp 18 02/23/18 11:17 BP 97/40 02/23/18 11:17 Pulse Ox 100 02/23/18 11:17 - Respiratory Respiratory: bilateral: CTA - Cardiovascular Rhythm: regular - Gastrointestinal General gastrointestinal: Present: soft - Labs Lab Results: Laboratory Results - last 24 hr 02/23/18 02/23/18 09:07 09:07 WBC 7.5 RBC 2.88 L Hgb 9.1 L Hct 27.6 L MCV 96 H MCH 32 MCHC 33 RDW 19.1 H Plt Count 92 L Add Manual Diff Complete Total Counted 100 Seg Neuts % (Manual) 89.0 H Band Neutrophils % 1.0 Lymphocytes % (Manual) 5.0 L Reactive Lymphs % (Man) 0 Monocytes % (Manual) 4.0 Eosinophils % (Manual) 1.0 Basophils % (Manual) 0 Metamyelocytes % 0 Myelocytes % 0 Promyelocytes % 0 Blast Cells % 0 Nucleated RBC % Not Reportable Seg Neutrophils # Man 6.7 Band Neutrophils # 0.1 Lymphocytes # (Manual) 0.4 L Abs React Lymphs (Man) 0.0 Monocytes # (Manual) 0.3 Eosinophils # (Manual) 0.1 Basophils # (Manual) 0.0 Metamyelocytes # 0.0 Myelocytes # 0.0 Promyelocytes # 0.0 Blast Cells # 0.0 WBC Morphology Not Reportable Hypersegmented Neuts Not Reportable Hyposegmented Neuts Not Reportable Hypogranular Neuts Not Reportable Smudge Cells Not Reportable Toxic Granulation Not Reportable Toxic Vacuolation Not Reportable Dohle Bodies Not Reportable Pelger-Huet Anomaly Not Reportable [place] Rods Not Reportable Platelet Estimate Consistent w auto Clumped Platelets Not Reportable Plt Clumps, EDTA Not Reportable Large Platelets Not Reportable Giant Platelets Not Reportable Platelet Satelliting Not Reportable Plt Morphology Comment Not Reportable RBC Morphology Not Reportable Dimorphic RBCs Not Reportable Polychromasia Not Reportable Hypochromasia Not Reportable Poikilocytosis Not Reportable Anisocytosis 1+ Microcytosis Not Reportable Macrocytosis Not Reportable Spherocytes Not Reportable Pappenheimer Bodies Not Reportable Sickle Cells Not Reportable Target Cells Not Reportable Tear Drop Cells Not Reportable Ovalocytes Not Reportable Helmet Cells Not Reportable [place] Bodies Not Reportable [place] Rings Not Reportable [place] Cells Not Reportable Bite Cells Not Reportable Crenated Cell Not Reportable Elliptocytes Not Reportable Acanthocytes (Spur) Not Reportable Rouleaux Not Reportable Hemoglobin C Crystals Not Reportable Schistocytes Not Reportable Malaria parasites Not Reportable Javier Bodies Not Reportable Hem Pathologist Commnt No Sodium 145 Potassium 3.7 Chloride 112.6 H Carbon Dioxide 19 L Anion Gap 17 BUN 30 H Creatinine 1.0 Estimated GFR > 60 BUN/Creatinine Ratio 30 Glucose 90 Calcium 7.5 L
[2018-02-23] MEDS: PEPCID PO SCH ×2 (12:36→21:55)
[2018-02-23] MEDS: D5/0.45NS 1,000 ML IV SCH (13:10)
[2018-02-24] MEDS: MORPHINE IV PRN (04:50)
[2018-02-24] MEDS: D5/0.45NS 1,000 ML IV SCH ×2 (05:04→20:22)
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
[2018-02-24] MEDS: SODIUM CHLORIDE FLUSH SYRINGE 10 ML IV SCH ×2 (10:00→22:27)
[2018-02-24] MEDS: PEPCID PO SCH ×2 (10:00→22:26)
[2018-02-24 10:09] LABS: Mean Corpuscular HGB Conc 33 % (32-34); Mean Corpuscular Hemoglobin 32 pg (28-32); Mean Corpuscular Volume 95 fl (84-94); Red Blood Count 2.83 M/mm3 (3.65-5.03)
[2018-02-24 10:10] LABS: Platelet Count 85 K/mm3 (140-440); Red Cell Distribution Width 20.1 % (13.2-15.2)
[2018-02-24 10:30] LABS: BUN/Creatinine Ratio 32; Blood Urea Nitrogen 29 mg/dL (9-20); Calcium 7.3 mg/dL (8.4-10.2); Hemolysis Index 10
[2018-02-24 12:03] LABS: Basophils % (Manual) 0 % (0.0-1.8); Total Cells Counted 100
[2018-02-24 12:04] LABS: Anisocytosis 1+
[2018-02-24 12:05] LABS: Macrocytosis 1+; Ovalocytes 1+; Platelet Estimate Consistent w Auto; Poikilocytosis 1+
[2018-02-25] MEDS: D5/0.45NS 1,000 ML IV SCH ×2 (05:26→18:49)
[2018-02-25 06:52] LABS: Basophils % (Auto) 0.2 % (0.0-1.8); Eosinophils % (Auto) 0.3 % (0.0-4.3); Hematocrit 27.7 % (35.5-45.6); Hemoglobin 9.3 gm/dl (11.8-15.2); Lymphocytes # (Auto) 0.6 K/mm3 (1.2-5.4); Lymphocytes % (Auto) 8.7 % (13.4-35.0); Mean Corpuscular HGB Conc 33 % (32-34); Mean Corpuscular Hemoglobin 32 pg (28-32); Mean Corpuscular Volume 95 fl (84-94); Monocytes # (Auto) 0.6 K/mm3 (0.0-0.8); Platelet Count 116 K/mm3 (140-440); Red Blood Count 2.93 M/mm3 (3.65-5.03); Red Cell Distribution Width 18.9 % (13.2-15.2)
[2018-02-25 07:16] LABS: BUN/Creatinine Ratio 29; Blood Urea Nitrogen 29 mg/dL (9-20); Calcium 7.2 mg/dL (8.4-10.2); Hemolysis Index 1
--- NOTE | 2018-02-25 09:02 | Hem/Onc Progress Note ---
Assessment and Plan Workup for anemia and thrombocytopenia showing no obvious cause. Platelets have improved. Continue to monitor. 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 If he has to have surgery, will be okay with the current latest plt count but will be monitoring for bleeding. Subjective Date of service: 02/25/18 Interval history: No change. No active bleeding. awake Objective - Exam Narrative Exam: Not verbal. No active bleeding - Constitutional Vitals: Last Vital Signs Temp 97.0 F L 02/25/18 07:07 Pulse 74 02/25/18 07:07 Resp 22 02/25/18 07:07 BP 104/55 02/25/18 07:07 Pulse Ox 99 02/25/18 07:51 General appearance: no acute distress Performance status: 4-completely disabled - Neck Neck: supple - Respiratory Respiratory effort: Positive: normal - Cardiovascular Rhythm: regular - Gastrointestinal General gastrointestinal: Present: soft - Labs Lab Results: Laboratory Results - last 24 hr 02/24/18 02/24/18 02/25/18 09:48 09:48 06:16 WBC 6.3 7.1 RBC 2.83 L 2.93 L Hgb 9.0 L 9.3 L Hct 27.0 L 27.7 L MCV 95 H 95 H MCH 32 32 MCHC 33 33 RDW 20.1 H 18.9 H Plt Count 85 L 116 L Lymph % (Auto) 8.7 L [place] % (Auto) 9.0 H Eos % (Auto) 0.3 Baso % (Auto) 0.2 Lymph # 0.6 L [place] # 0.6 Eos # 0.0 Baso # 0.0 Add Manual Diff Complete Total Counted 100 Seg Neutrophils % 81.8 H Seg Neuts % (Manual) 90.0 H Band Neutrophils % 0 Lymphocytes % (Manual) 3.0 L Reactive Lymphs % (Man) 0 Monocytes % (Manual) 6.0 Eosinophils % (Manual) 1.0 Basophils % (Manual) 0 Metamyelocytes % 0 Myelocytes % 0 Promyelocytes % 0 Blast Cells % 0 Nucleated RBC % Not Reportable Seg Neutrophils # 5.8 Seg Neutrophils # Man 5.7 Band Neutrophils # 0.0 Lymphocytes # (Manual) 0.2 L Abs React Lymphs (Man) 0.0 Monocytes # (Manual) 0.4 Eosinophils # (Manual) 0.1 Basophils # (Manual) 0.0 Metamyelocytes # 0.0 Myelocytes # 0.0 Promyelocytes # 0.0 Blast Cells # 0.0 WBC Morphology Not Reportable Hypersegmented Neuts Not Reportable Hyposegmented Neuts Not Reportable Hypogranular Neuts Not Reportable Smudge Cells Not Reportable Toxic Granulation Not Reportable Toxic Vacuolation Not Reportable Dohle Bodies Not Reportable Pelger-Huet Anomaly Not Reportable Naya Rods Not Reportable Platelet Estimate Consistent w auto Clumped Platelets Not Reportable Plt Clumps, EDTA Not Reportable Large Platelets Not Reportable Giant Platelets Not Reportable Platelet Satelliting Not Reportable Plt Morphology Comment Not Reportable RBC Morphology Not Reportable Dimorphic RBCs Not Reportable Polychromasia Not Reportable Hypochromasia Not Reportable Poikilocytosis 1+ Anisocytosis 1+ Microcytosis Not Reportable Macrocytosis 1+ Spherocytes Not Reportable Pappenheimer Bodies Not Reportable Sickle Cells Not Reportable Target Cells Not Reportable Tear Drop Cells Not Reportable Ovalocytes 1+ Helmet Cells Not Reportable Hagen-[place] Bodies Not Reportable [place] Rings Not Reportable [place] Cells Not Reportable Bite Cells Not Reportable Crenated Cell Not Reportable Elliptocytes Few Acanthocytes (Spur) Not Reportable Rouleaux Not Reportable Hemoglobin C Crystals Not Reportable Schistocytes Not Reportable Malaria parasites Not Reportable Javier Bodies Not Reportable Hem Pathologist Commnt No Sodium 145 Potassium 3.7 Chloride 114.9 H Carbon Dioxide 19 L Anion Gap 15 BUN 29 H Creatinine 0.9 Estimated GFR > 60 BUN/Creatinine Ratio 32 Glucose 91 Calcium 7.3 L 02/25/18 06:16 WBC RBC Hgb Hct MCV MCH MCHC RDW Plt Count Lymph % (Auto) [place] % (Auto) Eos % (Auto) Baso % (Auto) Lymph # [place] # Eos # Baso # Add Manual Diff Total Counted Seg Neutrophils % Seg Neuts % (Manual) Band Neutrophils % Lymphocytes % (Manual) Reactive Lymphs % (Man) Monocytes % (Manual) Eosinophils % (Manual) Basophils % (Manual) Metamyelocytes % Myelocytes % Promyelocytes % Blast Cells % Nucleated RBC % Seg Neutrophils # Seg Neutrophils # Man Band Neutrophils # Lymphocytes # (Manual) Abs React Lymphs (Man) Monocytes # (Manual) Eosinophils # (Manual) Basophils # (Manual) Metamyelocytes # Myelocytes # Promyelocytes # Blast Cells # WBC Morphology Hypersegmented Neuts Hyposegmented Neuts Hypogranular Neuts Smudge Cells Toxic Granulation Toxic Vacuolation Dohle Bodies Pelger-Huet Anomaly Naya Rods Platelet Estimate Clumped Platelets Plt Clumps, EDTA Large Platelets Giant Platelets Platelet Satelliting Plt Morphology Comment RBC Morphology Dimorphic RBCs Polychromasia Hypochromasia Poikilocytosis Anisocytosis Microcytosis Macrocytosis Spherocytes Pappenheimer Bodies Sickle Cells Target Cells Tear Drop Cells Ovalocytes Helmet Cells Hagen-[place] Bodies [place] Rings [place] Cells Bite Cells Crenated Cell Elliptocytes Acanthocytes (Spur) Rouleaux Hemoglobin C Crystals Schistocytes Malaria parasites Javier Bodies Hem Pathologist Commnt Sodium 143 Potassium 3.6 Chloride 113.1 H Carbon Dioxide 20 L Anion Gap 14 BUN 29 H Creatinine 1.0 Estimated GFR > 60 BUN/Creatinine Ratio 29 Glucose 130 H Calcium 7.2 L
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
[2018-02-25] MEDS: PEPCID PO SCH ×2 (15:41→21:28)
[2018-02-25] MEDS: SODIUM CHLORIDE FLUSH SYRINGE 10 ML IV SCH (15:42)
[2018-02-26] MEDS: SODIUM CHLORIDE FLUSH SYRINGE 10 ML IV SCH ×3 (06:07→23:02)
[2018-02-26 06:51] LABS: Basophils % (Auto) 0.4 % (0.0-1.8); Eosinophils # (Auto) 0.1 K/mm3 (0.0-0.4); Eosinophils % (Auto) 1.3 % (0.0-4.3); Hematocrit 24.6 % (35.5-45.6); Hemoglobin 8.1 gm/dl (11.8-15.2); Lymphocytes # (Auto) 0.5 K/mm3 (1.2-5.4); Mean Corpuscular HGB Conc 33 % (32-34); Mean Corpuscular Hemoglobin 32 pg (28-32); Mean Corpuscular Volume 96 fl (84-94); Monocytes # (Auto) 0.6 K/mm3 (0.0-0.8); Platelet Count 114 K/mm3 (140-440); Red Blood Count 2.55 M/mm3 (3.65-5.03); Red Cell Distribution Width 19.4 % (13.2-15.2)
[2018-02-26] MEDS: D5/0.45NS 1,000 ML IV SCH ×2 (07:03→17:48)
[2018-02-26 07:16] LABS: BUN/Creatinine Ratio 29; Blood Urea Nitrogen 26 mg/dL (9-20); Calcium 7.5 mg/dL (8.4-10.2); Hemolysis Index 12
[2018-02-26] MEDS: MORPHINE IV PRN (09:17)
[2018-02-26] MEDS: PEPCID PO SCH ×2 (10:00→22:57)
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
[2018-02-27] MEDS: MORPHINE IV PRN (03:52)
[2018-02-27] MEDS: D5/0.45NS 1,000 ML IV SCH (06:48)
[2018-02-27 08:41] LABS: Hematocrit 27.7 % (35.5-45.6); Hemoglobin 8.7 gm/dl (11.8-15.2); Mean Corpuscular HGB Conc 31 % (32-34); Mean Corpuscular Hemoglobin 32 pg (28-32); Mean Corpuscular Volume 101 fl (84-94); Platelet Count 116 K/mm3 (140-440); Red Blood Count 2.75 M/mm3 (3.65-5.03)
[2018-02-27 08:44] LABS: Red Cell Distribution Width 20.6 % (13.2-15.2)
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
--- NOTE | 2018-02-27 09:49 | Hem/Onc Progress Note ---
Assessment and Plan Workup for anemia and thrombocytopenia showing no obvious cause. Platelets have improved. . 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 pt to be discharged to hospice. Will see him when necessary Subjective Date of service: 02/27/18 Interval history: No change. No active bleeding. awake Objective - Exam Narrative Exam: Not verbal. No active bleeding - Constitutional Vitals: Last Vital Signs Temp 97.9 F 02/27/18 04:27 Pulse 63 02/27/18 04:27 Resp 20 02/27/18 04:27 BP 94/48 02/27/18 04:27 Pulse Ox 100 02/27/18 08:33 - Labs Lab Results: Laboratory Results - last 24 hr 02/27/18 07:32 WBC 4.8 RBC 2.75 L Hgb 8.7 L Hct 27.7 L MCV 101 H MCH 32 MCHC 31 L RDW 20.6 H Plt Count 116 L
[2018-02-27 09:53] LABS: Anisocytosis 1+; Basophils % (Manual) 0 % (0.0-1.8); Large Platelets Few; Platelet Estimate Consistent w Auto; Total Cells Counted 100
[2018-02-27] MEDS: SODIUM CHLORIDE FLUSH SYRINGE 10 ML IV SCH (10:00)
[2018-02-27] MEDS: PEPCID PO SCH (10:00)
[2018-02-27 10:26] VITALS: BP 111/39
== END 2018-02-27 11:00 | disposition hospice, inpatient (51) | DRG 682 ==
LOC: ED 10:33 → 4A 15:11 → 3B-SURG 18:48
PROVIDERS: ADMIT Internal Medicine; ATTEND Internal Medicine
PROC: 4A033R1 Measurement of Arterial Saturation, Peripheral, Percutaneous Approach (ICD-10-PCS; principal; 2018-02-19)
DX: N17.0 Acute kidney failure with tubular necrosis (principal); G93.41 Metabolic encephalopathy; E43 Unspecified severe protein-calorie malnutrition; S32.89XA Fracture of other parts of pelvis, initial encounter for closed fracture; E87.0 Hyperosmolality and hypernatremia; T76.21XA Adult sexual abuse, suspected, initial encounter; D61.818 Other pancytopenia; D64.9 Anemia, unspecified; D69.6 Thrombocytopenia, unspecified; M19.90 Unspecified osteoarthritis, unspecified site; F03.90 Unspecified dementia, unspecified severity, without behavioral disturbance, psychotic disturbance, mood disturbance, and anxiety; E86.0 Dehydration; I95.9 Hypotension, unspecified; Z66 Do not resuscitate; Z79.82 Long term (current) use of aspirin; Z79.899 Other long term (current) drug therapy; Z68.23 Body mass index [BMI] 23.0-23.9, adult; S32.402D Unspecified fracture of left acetabulum, subsequent encounter for fracture with routine healing; Z87.442 Personal history of urinary calculi
CPT/HCPCS: 36415; 51702; 70450; 71045; 72170; 74176; 80048; 80053; 81001; 82140; 82550; 82607; 82728; 82747; 82803; 83036; 83550; 84443; 84484; 85007; 85025; 85027; 85045; 85610; 86022; 86706; 86803; 87040; 87086; 87116; 93005; 93010; 94760; 96360; 96361; G8978-GP; G8979-GP; J1644; J2270; J7030; J7040; J7042; J7070